=== PATIENT | female | born 1970 | race Caucasian/White ===

== ENCOUNTER → 2017-04-28 | Outpatient (CLI) | payer BC ==
[~2017-04-28] MED LIST: CETI10TA84 PO; OPTIRAY 320 IV PRN
--- NOTE | 2017-04-28 13:39 | DIAGNOSTIC IMAGING REPORT ---
CT OF THE CHEST WITH IV CONTRAST CLINICAL HISTORY: Lung nodules. COMPARISON STUDY: Chest CT November 14, 2015 and March 07, 2016. TECHNIQUE: Following IV administration of 62 mL of Optiray-320, helical axial images of the chest were obtained. Sagittal and coronal reconstructions were viewed as well as maximal intensity projections on an independent 3-D workstation. A dose lowering technique was utilized adhering to the principles of ALARA. CT DOSE: 242.30 mGy.cm FINDINGS: No enlarged axillary, mediastinal or hilar lymph nodes are present. The size of the heart is normal. Mild dilatation of the ascending aorta, measuring 4.1 cm, is unchanged since CT of November 14, 2015. There is no thoracic aortic dissection. Central airways are patent. There is no consolidation to suggest pneumonia. A 3 mm right lower lobe nodule shown on image 178 of 346 and a 3 mm left upper lobe nodule shown on image [address] of November 14, 2015. A 4 mm left lower lobe nodule shown image 218 is also unchanged. There are no new nodules. Bony thorax is unremarkable. The patient is status post gastric bypass. There is no consolidation to suggest pneumonia. IMPRESSION: 1. No change in several small pulmonary nodules since CT of November 24, 2015. These are likely benign. A follow-up chest CT in one year to ensure stability is recommended. 2. Stable mild dilatation of the ascending aorta, measuring 4.1 cm. Electronically signed by: Danis Harvey M.D. 04/28/2017 1:38 PM Dictated Date/Time: 04/28/2017 1:18 PM
== END | disposition home or self-care (01) ==
LOC: C.CTS 11:54
PROVIDERS: ATTEND Family Medicine
DX: R91.8 Other nonspecific abnormal finding of lung field (principal)